=== PATIENT | female | born 1970 | race Caucasian/White ===

== ENCOUNTER → 2021-10-07 | Outpatient (CLI) | payer BC ==
[2021-10-07 09:59] LABS: ALKALINE PHOSPHATASE 96 U/L (45-117); BASO % 0.5 % (0.0-1.0); BUN 13 mg/dl (7-24); CHLORIDE 107 mmol/L (98-107); CHOLESTEROL 144 mg/dL (<200); EOS # 0.2 10*3/uL (0.0-0.4); EOS % 3.3 % (1.0-4.0); HEMATOCRIT 41.4 % (37.0-47.0); LYMPH # 1.6 10*3/uL (1.3-4.4); LYMPH % 25.1 % (27.0-41.0); MEAN CELL VOLUME 88.5 fl (81.0-99.0); MEAN CORPUSCULAR HGB 28.6 pg (27.0-31.0); MEAN CORPUSCULAR HGB CONC 32.4 g/dl (33.0-37.0); MEAN PLATELET VOLUME 9.6 fl (9.6-12.3); MONO # 0.4 10*3/uL (0.1-1.0); MONO % 6.4 % (3.0-9.0); NEUT # 4.2 10*3/uL (2.3-7.9); NEUT % 64.4 % (47.0-73.0); PLATELET COUNT AUTOMATED 236 10*3/uL (130-400); POTASSIUM 3.9 mmol/L (3.5-5.1); RED BLOOD COUNT 4.68 10*6/uL (4.10-5.10); RED CELL DISTRI WIDTH 13.7 % (0-14.5); SGOT/AST 37 IU/L (3-35); SGPT/ALT 43 U/L (12-78); SODIUM 138 mmol/L (136-145); TRIGLYCERIDES 148 mg/dl (<150); WHITE BLOOD COUNT 6.5 10*3/uL (4.8-10.8)
[2021-10-07 10:05] LABS: FREE T4 0.87 ng/dl (0.76-1.46); LDL CHOLESTEROL 62 mg/dL (9-159); TOTAL PROTEIN 7.7 gm/dL (6.4-8.2)
== END | disposition home or self-care (01) ==
LOC: LAB 08:20 → CARD 08:30
PROVIDERS: ATTEND Internal Medicine
DX: R06.02 Shortness of breath (principal); I10 Essential (primary) hypertension

== ENCOUNTER 2022-05-13 22:07 | Emergency (ER) | payer BC ==
[~2022-05-13] VITALS: Ht 157.4 cm; Wt 71.7 kg
[2022-05-13 23:45] LABS: BASO % 0.7 % (0.0-1.0); EOS # 0.4 10*3/uL (0.0-0.4); EOS % 6.3 % (1.0-4.0); HEMATOCRIT 41.6 % (37.0-47.0); LYMPH # 1.8 10*3/uL (1.3-4.4); LYMPH % 30.3 % (27.0-41.0); MEAN CELL VOLUME 88.7 fl (81.0-99.0); MEAN CORPUSCULAR HGB 29.2 pg (27.0-31.0); MEAN CORPUSCULAR HGB CONC 32.9 g/dl (33.0-37.0); MEAN PLATELET VOLUME 9.5 fl (9.6-12.3); MONO # 0.4 10*3/uL (0.1-1.0); MONO % 6.8 % (3.0-9.0); NEUT # 3.3 10*3/uL (2.3-7.9); NEUT % 55.7 % (47.0-73.0); PLATELET COUNT AUTOMATED 232 10*3/uL (130-400); RED BLOOD COUNT 4.69 10*6/uL (4.10-5.10); RED CELL DISTRI WIDTH 12.9 % (0-14.5); WHITE BLOOD COUNT 5.9 10*3/uL (4.8-10.8)
[2022-05-14] LABS: ALKALINE PHOSPHATASE 90 U/L (46-116); BUN 14 mg/dl (9-23); CHLORIDE 110 mmol/L (98-107); CREATININE 0.91 mg/dL (0.55-1.02); POTASSIUM 4.1 mmol/L (3.4-5.1); SGPT/ALT 13 U/L (10-49); SODIUM 140 mmol/L (136-145); TOTAL PROTEIN 7.1 gm/dL (6.0-8.0)
== END 2022-05-14 02:01 | disposition home or self-care (01) ==
LOC: ED 22:07
PROVIDERS: Internal Medicine
DX: R60.0 Localized edema (principal); R06.02 Shortness of breath; Z72.0 Tobacco use; Z88.2 Allergy status to sulfonamides

== ENCOUNTER 2022-07-16 11:45 | Emergency (ER) | payer OTHER ==
[~2022-07-16] VITALS: Ht 152.4 cm; Wt 68.5 kg
[2022-07-16] MEDS ORDERED: PROVENTIL HFA6.7 GM INH (14:43)
[2022-07-16] MEDS ORDERED: PREDNISONE20 M1 PO (14:43)
== END 2022-07-16 14:01 | disposition home or self-care (01) ==
LOC: ED 11:45
DX: S93.402A Sprain of unspecified ligament of left ankle, initial encounter (principal); J40 Bronchitis, not specified as acute or chronic; I10 Essential (primary) hypertension; E78.00 Pure hypercholesterolemia, unspecified; Z88.2 Allergy status to sulfonamides; Z20.822 Contact with and (suspected) exposure to COVID-19; X50.1XXA Overexertion from prolonged static or awkward postures, initial encounter; Y93.89 Activity, other specified; Y92.89 Other specified places as the place of occurrence of the external cause; Y99.8 Other external cause status

== ENCOUNTER 2023-03-19 08:12 | Emergency (ER) | payer OTHER ==
[~2023-03-19] VITALS: Wt 57.6 kg
[~2023-03-19 08:12] MED LIST: PREDNISONE20 M1 PO; PROVENTIL HFA6.7 GM INH
[2023-03-19] MEDS ORDERED: ROSUVASTATIN CA20 MG PO (08:55)
[2023-03-19] MEDS ORDERED: Lopressor25 MG PO (08:55)
[2023-03-19] MEDS ORDERED: FUROSEMIDE20 M1 PO (08:55)
[2023-03-19] MEDS ORDERED: PREDNISONE50 MG PO (09:14)
[2023-03-19] MEDS ORDERED: VIBRA-TAB100 MG PO (09:14)
== END 2023-03-19 09:23 | disposition home or self-care (01) ==
LOC: ED 08:12
DX: J20.9 Acute bronchitis, unspecified (principal); H10.9 Unspecified conjunctivitis; L73.9 Follicular disorder, unspecified; I10 Essential (primary) hypertension; E78.00 Pure hypercholesterolemia, unspecified; Z88.2 Allergy status to sulfonamides

== ENCOUNTER 2024-06-08 12:03 | Emergency (ER) | payer OTHER ==
[~2024-06-08] VITALS: Ht 157.4 cm; Wt 63.5 kg
[~2024-06-08 12:03] MED LIST changes: +FUROSEMIDE20 M1 PO; +Lopressor25 MG PO; +PREDNISONE50 MG PO; +ROSUVASTATIN CA20 MG PO; +VIBRA-TAB100 MG PO
[2024-06-08] MEDS ORDERED: Metoclopramide Hydrochloride 10 MG/2 ML VIAL IV ONE (12:35)
[2024-06-08] MEDS ORDERED: diphenhydrAMINE hydrochloride 50 MG/ML VIAL IV ONE (12:35)
[2024-06-08] MEDS ORDERED: SODIUM CHLORIDE 0.9% 1,000 ML IV ONE (12:35)
[2024-06-08] MEDS ORDERED: PEPCID40 MG PO (12:39)
[2024-06-08] MEDS ORDERED: ZITHROMAX250 MG PO (12:39)
[2024-06-08] MEDS ORDERED: Ondansetron4 MG PO (12:39)
[2024-06-08 12:45] LABS: BASO % 0.7 % (0.0-1.0); EOS # 0.2 10*3/uL (0.0-0.4); EOS % 4.8 % (1.0-4.0); HEMATOCRIT 44.5 % (37.0-47.0); MEAN CELL VOLUME 90.8 fl (81.0-99.0); MEAN CORPUSCULAR HGB 28.8 pg (27.0-31.0); MEAN CORPUSCULAR HGB CONC 31.7 g/dl (33.0-37.0); MEAN PLATELET VOLUME 9.1 fl (9.6-12.3); MONO # 0.7 10*3/uL (0.1-1.0); MONO % 16.9 % (3.0-9.0); NEUT # 1.8 10*3/uL (2.3-7.9); NEUT % 43.2 % (47.0-73.0); PLATELET COUNT AUTOMATED 215 10*3/uL (130-400); RED CELL DISTRI WIDTH 13.3 % (0-14.5); WHITE BLOOD COUNT 4.2 10*3/uL (4.8-10.8)
[2024-06-08 13:06] LABS: ALKALINE PHOSPHATASE 66 U/L (46-116); BUN 10 mg/dl (9-23); CHLORIDE 107 mmol/L (98-107); LIPASE 39 U/L (12-53); SGPT/ALT 17 U/L (5-49); TOTAL PROTEIN 7.3 gm/dL (6.0-8.0)
[2024-06-08 13:36] LABS: BILIRUBIN Negative (Negative); BLOOD Negative (Negative); CLARITY Clear (Clear); COLOR Yellow (Yellow); GLUCOSE Negative (Negative); KETONE 1+ (Negative); LEUKO ESTERASE Negative (Negative); NITRITE Negative (Negative); SPECIFIC GRAVITY 1.025 (1.001-1.030)
[2024-06-08 13:58] LABS: BACTERIA 2+; EPITHELIAL CELLS 16-20; MUCOUS 1+
[2024-06-08] MEDS ORDERED: VENT7GM INH (15:05)
[2024-06-08] MEDS ORDERED: PREDNISONE20 M1 PO (15:05)
== END 2024-06-08 15:06 | disposition home or self-care (01) ==
LOC: ED 12:03
PROVIDERS: Emergency Medicine
DX: U07.1 COVID-19 (principal); K52.9 Noninfective gastroenteritis and colitis, unspecified; J40 Bronchitis, not specified as acute or chronic; R91.1 Solitary pulmonary nodule; I10 Essential (primary) hypertension; E78.00 Pure hypercholesterolemia, unspecified; Z88.2 Allergy status to sulfonamides; Z79.899 Other long term (current) drug therapy

== ENCOUNTER 2024-08-17 19:15 | Emergency (ER) | payer OTHER ==
[~2024-08-17] VITALS: Ht 157.4 cm; Wt 63.5 kg
[~2024-08-17 19:15] MED LIST changes: +Ondansetron4 MG PO; +PEPCID40 MG PO; +VENT7GM INH; +ZITHROMAX250 MG PO
[2024-08-17 19:56] LABS: BASO % 0.3 % (0.0-1.0); EOS % 0.1 % (1.0-4.0); MEAN CELL VOLUME 90.4 fl (81.0-99.0); MEAN CORPUSCULAR HGB 28.3 pg (27.0-31.0); MEAN CORPUSCULAR HGB CONC 31.3 g/dl (33.0-37.0); MEAN PLATELET VOLUME 9.5 fl (9.6-12.3); MONO % 8.8 % (3.0-9.0); NEUT # 8.3 10*3/uL (2.3-7.9); NEUT % 75.8 % (47.0-73.0); PLATELET COUNT AUTOMATED 351 10*3/uL (130-400); RED BLOOD COUNT 5.09 10*6/uL (4.10-5.10); RED CELL DISTRI WIDTH 13.7 % (0-14.5)
[2024-08-17 20:17] LABS: ALKALINE PHOSPHATASE 79 U/L (46-116); BUN 18 mg/dl (9-23); CHLORIDE 107 mmol/L (98-107); SGPT/ALT 13 U/L (5-49); TOTAL PROTEIN 8.1 gm/dL (6.0-8.0)
[2024-08-17] MEDS ORDERED: methylPREDNISolone sod succ 125 MG VIAL IM ONE (22:35)
[2024-08-17] MEDS ORDERED: PREDNISONE20 M1 PO (22:39)
[2024-08-17] MEDS ORDERED: ZITHROMAX250 MG PO (22:39)
== END 2024-08-17 22:49 | disposition home or self-care (01) ==
LOC: ED 19:15
PROVIDERS: Internal Medicine
DX: J06.9 Acute upper respiratory infection, unspecified (principal); B97.89 Other viral agents as the cause of diseases classified elsewhere; J44.9 Chronic obstructive pulmonary disease, unspecified; I10 Essential (primary) hypertension; E78.00 Pure hypercholesterolemia, unspecified; Z88.2 Allergy status to sulfonamides; Z79.899 Other long term (current) drug therapy